=== PATIENT | male | born 1940 | race Caucasian/White ===

== ENCOUNTER 2019-03-17 07:54 | Day surgery (SDC) | payer OTHER, MEDICARE ==
[2019-03-16 14:24] VITALS: BMI 24.1
[2019-03-17] MEDS ORDERED: LIDOCAINE HCL/PF 2% SDV 5ML VIAL ONE (08:12)
[2019-03-17] MEDS ORDERED: PROPOFOL 20 ML ONE (08:12)
[2019-03-17 10:00] VITALS: TEMP 97.8
[2019-03-17 10:30] VITALS: BP 114/65
[2019-03-17 10:44] VITALS: PULSE 75
--- NOTE | 2019-03-21 16:02 | PATH ---
Surgical Pathology Report Patient Name: CARL NOGUERA [facility]. Rec. #: [id number] /Age/Gender: 1940 (Age: 78) / M Account: [id number] Location: [facility] Taken: 03/17/2019 Received: 03/17/2019 Reported: 03/21/2019 Physicians: Howard Santos M.D. Specimen(s) Received POLYP RIGHT COLON Clinical History History of polyps Postoperative diagnosis: Diverticulosis, polyp Final Diagnosis RIGHT COLON, POLYP, BIOPSY: TUBULAR ADENOMA. Electronically Signed Prudence Urias M.D. Gross Description Received in formalin, labeled "polyp right colon" is a goodwin, polypoid portion of soft tissue measuring 0.6 cm. in greatest dimension. The specimen is submitted in toto in one cassette. 03/18/201903/18/2019
== END 2019-03-17 10:40 | disposition home or self-care (01) ==
LOC: FASU-ENDO 07:54
PROVIDERS: ATTEND Internal Medicine Gastroenterology
PROC: 0DBK8ZX Excision of Ascending Colon, Via Natural or Artificial Opening Endoscopic, Diagnostic (ICD-10-PCS; principal; 2019-03-17 09:16)
DX: Z86.010 Personal history of colon polyps (principal); D12.2 Benign neoplasm of ascending colon; K57.30 Diverticulosis of large intestine without perforation or abscess without bleeding
CPT/HCPCS: 88305-TC

== ENCOUNTER 2020-08-09 12:05 | Emergency (ER) | payer OTHER, MEDICARE ==
[2020-08-09 12:25] VITALS: BP 124/69; PULSE 61; TEMP 97.8; BMI 23.1
[2020-08-09 13:58] LABS: EPITHELIAL CELLS RARE /hpf
[2020-08-09 13:59] LABS: URINE MUCUS 1+
[2020-08-09 14:13] LABS: ALBUMIN 4.5 g/dl (3.4-5.0); BILIRUBIN,TOTAL 0.7 mg/dl (0.2-1); CALCIUM 9.6 mg/dl (8.5-10); CREATININE 1.1 mg/dl (0.55-1.3); POTASSIUM 3.7 mmol/L (3.5-5.1); TOT PROT 7.2 g/dl (6.4-8.2)
[2020-08-09 14:29] LABS: HEMATOCRIT 44.1 % (35.4-49); MCH 33.1 pg (25.7-33.7); MCHC 34.1 g/dl (32.0-35.9); MEAN PLT VOLUME 7.8 fl (7.5-11.1); PLATELET COUNT 281 K/MM3 (134-434); RBC 4.54 M/mm3 (4.00-5.60); RDW 13.1 % (11.9-15.9); WHITE BLOOD COUNT 15.9 K/mm3 (4.0-10.8)
[2020-08-09 15:52] LABS: PLATELET ESTIMATE ADEQUATE
[2020-08-09] MEDS ORDERED: KETOROLAC TROMETHAMINE 30 MG/1 ML VIAL IVPUSH ONE (15:52)
[2020-08-09] MEDS ORDERED: SODIUM CHLORIDE 1,000 ML IV STA (15:52)
[2020-08-09] MEDS ORDERED: KETOROLAC TROMETHAMINE 15 MG/ML VIAL ONE (16:02)
== END 2020-08-09 16:44 | disposition home or self-care (01) ==
LOC: FER 12:05
PROC: 3E0333Z Introduction of Anti-inflammatory into Peripheral Vein, Percutaneous Approach (ICD-10-PCS; principal; 2020-08-09)
PROC: 3E0337Z Introduction of Electrolytic and Water Balance Substance into Peripheral Vein, Percutaneous Approach (ICD-10-PCS; 2020-08-09)
DX: N20.0 Calculus of kidney (principal)
CPT/HCPCS: 36415; 74177-TC; 80053; 81003; 81015; 85025; 87086; 99285-25

== ENCOUNTER 2021-02-27 13:50 | Emergency (ER) | payer OTHER, MEDICARE ==
[2021-02-27 14:06] VITALS: BP 126/81; PULSE 93; TEMP 98.2; BMI 22.7
[2021-02-27] MEDS ORDERED: MAGNESIUM CITRATE 300 ML BOTTLE PO ONE (14:40)
[2021-02-27] MEDS ORDERED: MAGNESIUM CITRATE 300 ML BOTTLE ONE (14:47)
[2021-02-27] MEDS ORDERED: BISACODYL 10 MG SUPP.RECT PR ONE (15:45)
[2021-02-27] MEDS ORDERED: BISACODYL 10 MG SUPP.RECT ONE (16:01)
== END 2021-02-27 17:50 | disposition home or self-care (01) ==
LOC: FER 13:50
DX: K59.01 Slow transit constipation (principal)
CPT/HCPCS: 99283-25

== ENCOUNTER 2021-03-06 08:08 | Emergency (ER) | payer OTHER, MEDICARE ==
[2021-03-06 08:14] VITALS: BP 141/76; PULSE 67; TEMP 97.8; BMI 22.7
[2021-03-06] MEDS ORDERED: GLYCERIN 1 RECTAL SUPPOSITORY, ADULT PR ONE (08:19)
[2021-03-06] MEDS ORDERED: MAGNESIUM CITRATE 300 ML BOTTLE PO ONE (08:19)
[2021-03-06] MEDS ORDERED: SODIUM PHOSPHATE/NA BIPHOS 133 ML ENEMA PR ONE (08:27)
[2021-03-06] MEDS ORDERED: MAGNESIUM CITRATE 300 ML BOTTLE ONE (08:27)
[2021-03-06] MEDS ORDERED: BISACODYL 10 MG SUPP.RECT PR ONE (08:29)
[2021-03-06] MEDS ORDERED: BISACODYL 10 MG SUPP.RECT ONE (09:26)
== END 2021-03-06 10:26 | disposition home or self-care (01) ==
LOC: FER 08:08
DX: K59.00 Constipation, unspecified (principal)
CPT/HCPCS: 74019-TC-FY; 99283-25

== ENCOUNTER 2021-03-08 15:37 | Emergency (ER) | payer OTHER, MEDICARE ==
[2021-03-08 16:15] VITALS: BP 122/72; PULSE 74; TEMP 98.3; BMI 21.9
== END 2021-03-08 18:32 | disposition home or self-care (01) ==
LOC: FER 15:37
DX: K59.00 Constipation, unspecified (principal); K56.41 Fecal impaction; R10.9 Unspecified abdominal pain
CPT/HCPCS: 99283-25

== ENCOUNTER 2023-10-09 13:51 | Emergency (ER) | payer OTHER, MEDICARE ==
[2023-10-09 14:06] VITALS: BP 118/68; PULSE 106; RESP 16; TEMP 97.9; BMI 22.6
== END 2023-10-09 16:56 | disposition home or self-care (01) ==
LOC: SUPCPDRO 13:51 → FER 13:51
DX: K59.01 Slow transit constipation (principal); R35.0 Frequency of micturition; R39.12 Poor urinary stream
CPT/HCPCS: 81003; 87086; 99283-25